=== PATIENT | female | born 1985 | race Caucasian/White ===

== ENCOUNTER 2019-01-18 15:30 | Outpatient (CLI) | payer MEDICAID, SELFPAY ==
[2019-01-18 16:07] VITALS: BMI 31.1
[2019-01-18 16:39] LABS: ROM Internal Control Test YES-OK TO RESULT pt. (Internal QC); ROM Patient Test Negative (Negative)
--- NOTE | 2019-01-20 07:13 | OB.TRI.PN ---
Progress Notes Date of Service: 01/18/19 Progress Note: with EDC02/12/19 presents to labor and delivery with complaint of uterine contractions and rupture of membranes. Noticed increased vaginal mucous discharge and unsure if her water broke. Contractions are uncomfortable but not regular, 15 minutes apart. No vaginal bleeding, good movement. O: !30, moderate variability, accels, no decels. Irregular uterine contractions. Reactive NST Cervix: closed, thick. Unchanged on recheck A: Vaginal discharge Irregular uterine contractions History of section P: 1) Not in active labor. Decreased discomfort with uterine irritability. 2) ROM plus negative. 3) Discharge home Laboratory Studies: Laboratory Tests 01/18/19 Range/Units 15:50 Vag Amniotic Fld Detect Negative (Negative)
== END 2019-01-18 18:30 | disposition home or self-care (01) ==
LOC: WPOUT 15:38 → WP 15:39
PROVIDERS: Visit Provider Advanced Practice Midwife
DX: O26.899 Other specified pregnancy related conditions, unspecified trimester (principal); N89.8 Other specified noninflammatory disorders of vagina; O34.219 Maternal care for unspecified type scar from previous cesarean delivery; Z3A.00 Weeks of gestation of pregnancy not specified
CPT/HCPCS: 59025; 59050; 84112; 99218; G0378

== ENCOUNTER 2019-02-05 05:00 | Inpatient (IN) | payer MEDICAID, SELFPAY ==
--- NOTE | 2019-02-03 10:07 | PCM.HP.BLA ---
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 Patient denies any vaginal bleeding, leaking of fluid. Patient is scheduled on February 05, 2019 at which time she'll be 39 weeks gestation ? PAST?MEDICAL?HISTORY No past medical history on file. PAST?SURGICAL?HISTORY PAST SURGICAL HISTORY Procedure Laterality Date ? SECTION HX ? 01/19/2010 ? FAMILY?HISTORY FAMILY HISTORY Problem Relation Age of Onset ? Stroke Mother ? ? Heart disease Mother ? ? No Known Problems Father ? ? Asthma Sister ? ? Asthma Brother ? ? No Known Problems Maternal Grandmother ? ? No Known Problems Maternal Grandfather ? ? No Known Problems Paternal Grandmother ? ? No Known Problems Paternal Grandfather ? ? No Known Problems Sister ? ? SOCIAL?HISTORY Social History Socioeconomic History Marital status: Spouse name: Not on file Number of children: Not on file Years of education: Not on file Highest education level: Not on file Occupational History Not on file Social Needs Financial resource strain: Not on file Food insecurity: Worry: Not on file Inability: Not on file Transportation needs: Medical: Not on file Non-medical: Not on file Tobacco Use Smoking status: Never Smoker Smokeless tobacco: Never Used Substance and Sexual Activity Alcohol use: No Drug use: No Sexual activity: Yes Partners: Male Lifestyle Physical activity: Days per week: Not on file Minutes per session: Not on file Stress: Not on file Relationships Social connections: Talks on phone: Not on file Gets together: Not on file Attends bahai service: Not on file Active member of club or organization: Not on file Attends meetings of clubs or organizations: Not on file Relationship status: Not on file Intimate partner violence: Fear of current or ex partner: Not on file Emotionally abused: Not on file Physically abused: Not on file Forced sexual activity: Not on file Other Topics Concerns: Not on file Social History Narrative Not on file ? CURRENT?MEDICATIONS ? Current Outpatient Medications: [id number]/FA/om3/dha/epa ( GUMMY ORAL) Take by mouth. promethazine (PHENERGAN) 12.5 mg tablet Take 1 tablet by mouth every 6 hours as needed. ondansetron orally disintegrating (ZOFRAN ODT) 4 mg disintegrating tablet Take 1 tablet by mouth every 8 hours as needed. ? No current facility-administered medications for this visit. Allergies As of Date: 02/02/2019 Allergen Noted Reaction PENICILLIN 07/01/2018 Unknown ? Fully Assessed 02/02/2019 ? ? REVIEW OF SYSTEMS Abdomen: No abdominal pain, nausea, vomiting, diarrhea, or constipation. Bladder: no dysuria.. Expanded ROS: GENERAL: Negative for fever Allergies and current medication updated:Yes ? EXAM: BP 108/64 Wt 207 lb (93.9kg) LMP 05/08/2018 ? GENERAL: pleasant, female in no apparent distress HEENT: Normocephalic and atraumatic NECK: full range of motion DERMATOLOGY: Normal, without lesions, non-icteric and non-hirsute CARDIAC: regular rate and rhythm CHEST: Normal inspiratory effort, clear to auscultation ABDOMEN: gravid, non tender PELVIC: deferred BIMANUAL: deferred NEURO: alert and oriented x3,exam grossly non-focal EXTREMITIES: normal ? ASSESSMENT AND PLAN: Encounter Diagnosis ? ? ICD-10-CM ? 1. Visit for screening Z36.9 URINE OB DIP B/O 2. History of delivery Z98.891 URINE OB DIP B/O 3. 38 weeks gestation of Z3A.38 URINE OB DIP B/O 4. Need for vaccination Z23 INFLUENZA VACCINE QUADRIVALENT AGE 3 YRS PLUS + IM ? Pt has been counseled on risks/benefits and alternatives of surgery including but not limited to anesthesia, bleeding, infection, injury to pelvic structures including bowel, bladder, ureters and vessels. Pt wishes to proceed with surgery at this time. ? ? Krystal Tran MD ? Routine Office Visit on 02/02/2019
[2019-02-05] VITALS (23 sets, daily range): BP systolic 96–124; BP diastolic 53–81; PULSE 55–93; RESP 16–22; TEMP 36.2–36.9; O2SAT 93–100; BMI 32.2
[2019-02-05] MEDS: Lactated Ringers 1,000 ML 999 ML IV (05:15)
[2019-02-05 05:34] LABS: Absolute Lymphocyte Count 1.43 X10^3/uL (0.83-4.51); Absolute Neutrophil Count 5.9 X10^3/uL (2.0-7.7); Basophil# 0.01 X10^3/uL; Basophil% 0.1 % (0-1); Eosinophil# 0.09 X10^3/uL; Eosinophils% 1.1 % (0-5); Hematocrit 38.5 % (37-47); Hemoglobin 12.8 g/dL (12.0-15.0); Lymphocyte # 1.43 X10^3/ul (4.0); Lymphocyte % 18.2 % (19-41); Mean Corp Hgb Conc 33.2 g/dL (32-36); Mean Corpuscular Hgb 29.6 pg (27.0-32.0); Mean Corpuscular Volume 89.1 fL (81-99); Monocyte# 0.42 X10^3/uL; Monocyte% 5.4 % (0-10); NRBC Flagged by Analyzer 0 % (0-5); Neutrophil # 5.87 X10^3/uL (2.7-7.7); Neutrophil % 74.8 % (47-70); Platelet Count 202 K/mm3 (150-450); RBC Distribution Width CV 15.6 % (11.6-14.6); RBC Distribution Width SD 50.7 fl (35.1-43.9); Red Blood Count 4.32 M/mm3 (4.2-5.4); White Blood Count 7.9 K/mm3 (4.4-11.0)
[2019-02-05] MEDS: Lactated Ringers 1,000 ML 150 ML IV (06:17)
[2019-02-05] MEDS: Sodium Citrate/Citric Acid 30 ML UDC PO (07:08)
[2019-02-05] MEDS: Cefazolin 2 GM in 0.9% Normal Saline 100 ML IV (07:30)
[2019-02-05] MEDS: Ondansetron 4 MG/2 ML Vial IV (07:47)
--- NOTE | 2019-02-05 08:04 | PCM.OPRPT ---
Delivery Classification: Scheduled Final RADHA: 02/12/19 Final RADHA Source: LMP Gestational age: 39 Weeks and 0 Days mathematical engineer: Michael Hoskins Type of Anesthesia:: Spinal Implants Used: none Date of Procedure: 02/05/19 Pre-Operative Diagnosis: 39 weeks term gestation, elective repeat section Post-Operative Diagnosis: live female infant Indications: repeat section Indications for : Repeat Elective Description of Procedure: Operative note: After informed consent was obtained the patient was taken to the operating room she was given spinal anesthesia. He was placed in the supine position. She was then prepped and draped in normal sterile fashion. Once spinal anesthesia was found to be adequate skin incision was made with a scalpel in a Pfannenstiel fashion. It was carried down to the underlying layer of the fascia. Fascia was then incised midline with scapel and extended laterally using curved ordoñez. 2 straight Trae's were placed in the superior aspect of the fascial edge and the rectus muscles were dissected off sharply. Attention was then turned to the inferior aspect where again the fascial edge was grasped with 2 straight Trae clamps tented up and the rectus muscle dissected off sharply. At this time the rectus muscles were grasped in the midline using 2 Allis clamps and scalpel was used to separate the rectus muscles. Using blunt force the peritoneum was then entered. Metzenbaums were used to take down the rectus muscles inferiorly as well as the peritoneum. At this time the vesicouterine peritoneum was identified. Metzenbaum scissors were used to create a bladder flap and then taken down digitally. Uterine incision was made in a low transverse fashion with the scalpel and then entered bluntly. Gentle opposing traction was placed to extend the uterine incision. The membranes were ruptured amniotic fluid clear. Infant's head was then brought to the uterine incision was delivered atraumatically followed by the rest infant's body. At this time delayed cord clamping was performed mouth nose were suctioned. Infant was then handed to the waiting nursery team. The placenta was then removed with gentle traction. The uterus was removed from the intra-abdominal cavity is wrapped in a moist lap. He was cleared of all clots and debris using a moist lap. Ring clamps were placed on the uterine angles. #1 Vicryl suture was used in a running locked fashion for the first layer. Followed by second imbricating layer with #1 Vicryl. At this time then the uterus was placed back into abdominal cavity uterine incision was evaluated and noted to be of good hemostasis. Tubes and ovaries were evaluated they were normal. . Great hemostasis was appreciated at this time the uterine incision was again evaluated good hemostasis was appreciated. The peritoneum was grasped with Kellys. Peritoneum was reapproximated using #2 Vicryl suture in a running fashion. The fascia was then reapproximated using #1 Vicryl in a running fashion. Subcutaneous layer was evaluated and Bovie was used for any small oozing that was noted per #2-0 plain gut suture was then used to reapproximate the subcutaneous layer 4-0 monocryl used to reapproximate the skin in a subcutaneous fashion. Dry sterile dressing was applied. Instrument lap needle count were correct ?2. Anticipated normal postoperative course for this patient. Amniotic Membrane Rupture Type: Artificial Amniotic Fluid Description: Clear Placenta Disposition: [facility] Drain: Uriarte to straight drain Fluids Replaced: 1000 Cord Entanglement: None Cord Vessel Description: 3 Vessels Esitmated Blood Loss (ml): 600 Infant Gender: Female (1 minute): 9 (5 minute): 9 Delayed cord clamping: Yes Antibiotic Given: Ancef 2 grams IV x1 Pt instructed on risks of surgery: Bleeding, Anesthesia Risks, Infection, Need for Future C-Sections, Injury to surrounding structure(s) including bowel and bladder Complications: None - Admit VTE Documentation VTE Present on Admission: Yes VTE Mechan Device Prophylaxis: SCD's VTE Pharm Prophylaxis ordered?: Yes
[2019-02-05] MEDS: Oxytocin 30 units/NS 500 ml 30 UNITS/500 ML IV.SOLN 167 UNITS IV (08:36)
[2019-02-05] MEDS: Lactated Ringers 1,000 ML 100 ML IV ×2 (11:49→21:17)
[2019-02-05] MEDS: Prenatal Vits Tablet 1 TABLET PO (11:55)
[2019-02-05] MEDS: Ferrous Sulfate 325 MG Tablet PO ×2 (11:55→17:58)
[2019-02-05] MEDS: Ketorolac 30 MG/ML Syringe IV ×2 (14:02→20:16)
[2019-02-05] MEDS: 0.9% Saline Lock 10 ML Syringe IV ×2 (14:03→20:15)
[2019-02-06] VITALS (7 sets, daily range): BP systolic 102–131; BP diastolic 45–74; PULSE 58–75; RESP 14–18; TEMP 36.6–37.2; O2SAT 96–100
[2019-02-06] MEDS: Ketorolac 30 MG/ML Syringe IV ×4 (02:18→20:26)
[2019-02-06] MEDS: Enoxaparin 40 MG/0.4 ML Syringe SC (05:59)
[2019-02-06 06:11] LABS: Hematocrit 34.3 % (37-47); Hemoglobin 11.3 g/dL (12.0-15.0); Mean Corp Hgb Conc 32.9 g/dL (32-36); Mean Corpuscular Hgb 30.1 pg (27.0-32.0); Mean Corpuscular Volume 91.2 fL (81-99); Mean Platelet Vol. 11.3 fl (6.2-12.0); Platelet Count 171 K/mm3 (150-450); RBC Distribution Width CV 15.5 % (11.6-14.6); RBC Distribution Width SD 51.8 fl (35.1-43.9); Red Blood Count 3.76 M/mm3 (4.2-5.4); White Blood Count 10.1 K/mm3 (4.4-11.0)
[2019-02-06] MEDS: 0.9% Saline Lock 10 ML Syringe IV ×2 (09:00→20:26)
[2019-02-06] MEDS: Senna/Docusate Sodium 1 Tablet PO (09:26)
[2019-02-06] MEDS: Prenatal Vits Tablet 1 TABLET PO (09:27)
[2019-02-06] MEDS: Ferrous Sulfate 325 MG Tablet PO ×2 (09:27→16:26)
--- NOTE | 2019-02-06 09:57 | PCM.PN.OB ---
Subjective: Pain well controlled, average lochia. No nausea or vomiting. Tolerating regular diet. - Physical Exam General: Alert, Cooperative, No apparent distress Abdomen: Soft, Distended - Mildly, softly, Tender - Appropriately Skin: Incision - The bandage is clean dry and intact Vital Signs Temp Pulse Resp BP Pulse Ox 98.2 F 65 16 115/71 100 02/06/19 09:06 02/06/19 09:06 02/06/19 09:06 02/06/19 09:06 02/06/19 09:06 Oxygen Delivery Method Room Air Weight: 93.2 kg Body Mass Index (BMI) 32.2 Intake and Output for Last 24 Hours 02/04/19 02/05/19 02/06/19 23:59 23:59 23:59 Intake Total 4651.67 / 4651.67 1073.33 / 1073.33 Output Total 900 / 900 550 / 550 Balance 3751.67 / 3751.67 523.33 / 523.33 Laboratory Tests Past 24 Hrs 02/06/19 05:58 WBC 10.1 RBC 3.76 L Hgb 11.3 L Hct 34.3 L MCV 91.2 MCH 30.1 MCHC 32.9 RDW Std Deviation 51.8 H RDW Coeff of Mariano 15.5 H Plt Count 171 MPV 11.3 Medical Necessity - Tobacco Use Smoking Status: Never smoker Assessment/Plan Postoperative day #1 status post repeat . Patient doing well. Patient is working on breast-feeding. Likely home tomorrow.
[2019-02-06] MEDS: Acetaminophen 500 MG Tablet 1000 MG PO (16:20)
[2019-02-07] MEDS: Ketorolac 30 MG/ML Syringe IV ×2 (02:27→08:51)
[2019-02-07] MEDS: 0.9% Saline Lock 10 ML Syringe IV ×2 (02:28→08:51)
[2019-02-07 02:30] VITALS: BP 124/75; PULSE 75; RESP 16; TEMP 36.9
[2019-02-07] MEDS: Enoxaparin 40 MG/0.4 ML Syringe SC (06:19)
[2019-02-07 08:45] VITALS: BP 115/75; PULSE 69; RESP 18; TEMP 36.6; O2SAT 98
[2019-02-07] MEDS: Prenatal Vits Tablet 1 TABLET PO (08:51)
[2019-02-07] MEDS: Ferrous Sulfate 325 MG Tablet PO (08:51)
--- NOTE | 2019-02-07 09:50 | PCM.PN.OB ---
Subjective: pain well controlled, average lochia, no N/V. + BM. - Physical Exam General: Alert, Cooperative, No apparent distress Abdomen: Soft, Non-Distended, Distended - mildly, softly, - - fundus firm, below umbilicus Skin: Incision - bandage is clean dry and intact Vital Signs Temp Pulse Resp BP Pulse Ox 98 F 69 18 115/75 98 02/07/19 08:45 02/07/19 08:45 02/07/19 08:45 02/07/19 08:45 02/07/19 08:45 Oxygen Delivery Method Room Air Weight: 93.2 kg Body Mass Index (BMI) 32.2 Intake and Output for Last 24 Hours 02/05/19 02/06/19 02/07/19 23:59 23:59 23:59 Intake Total 4651.67 / 4651.67 1073.33 / 1073.33 Output Total 900 / 900 2150 / 2150 Balance 3751.67 / 3751.67 -1076.67 / -1076.67 Medical Necessity - Tobacco Use Smoking Status: Never smoker Assessment/Plan POD#2 routine care ready for dc infant and doing well
--- NOTE | 2019-02-07 09:56 | DCINST_ITS ---
Discharge Diet: No Restrictions Discharge Activity: Return to Normal Activity, May Not Drive - for 2 weeks, May not drive while taking narcotic pain medications., May Shower, May Take a Tub Bath - in 7 days. May resume sexual activity in: 4-6 weeks Lifting Restrictions: 20 pounds Additional Activity Instructions:: Nothing in the vagina for 4-6 weeks. You may return to work/school in 6 weeks. Call your doctor if your incision/area has: Continuous Slow Oozing, Sudden Increased Bleeding, Increased Pain/ Swelling, Increased Redness, Foul Smelling Discharge Call your doctor if you observe: Fever of 101 or Higher, Using more than one pad per hour - for 2 hours Suture Line Care: Avoid Pulling/Pushing, Avoid Pinching/Bending Cleanse incision/area with: Keep Dressing Clean & Dry Additional Instructions: If you experience any of the following, contact your healthcare provider. * Bleeding that soaks a pad every hour for 2 hours * Fever 100.4 or higher * Unrelieved incision or abdominal pain * Swelling, redness, discharge or bleeding from your incision or episiotomy site * Your incision begins to separate * Problems urinating (including inability to urinate or burning while urinating). * Visual changes * Severe headache * Flu-like symptoms * Pain or redness in one of both of your breasts * Pain, warmth, tenderness or swelling in your legs, especially the calf area * Frequent nausea and vomiting * Symptoms of depression or anxiety If you experience any of the following, call 911 or go to the nearest Emergency Room. * Chest pain * Problems breathing * Seizure activity * Partial or complete paralysis of a body part, slurred speech, weakness or drooping of the face, or a sudden inability to walk or hold your balance Allergies/Adverse Reactions: Allergies Penicillins Allergy (Verified 02/05/19 05:09) Unknown Medications to take at Discharge Ferrous Sulfate [Iron] 325 mg PO BID 01/18/19 Vits [Prenatabs FA ] 1 tab PO DAILY 01/18/19 Docusate Sodium [Colace] 100 mg PO DAILY 02/05/19 Ibuprofen [Motrin] 800 mg PO TID PRN PRN #60 tab 02/07/19 Oxycodone [Oxyir] 5 mg PO Q6H PRN PRN 2 Days #5 tab 02/07/19 The following prescriptions were given: Ibuprofen [Motrin] 800 mg PO TID PRN PRN #60 tab PRN Reason: Pain [id number] Oxycodone [Oxyir] 5 mg PO Q6H PRN PRN 2 Days #5 tab PRN Reason: Severe Pain (-02/25) Transmission Status[id number] Follow-Up: Call to make a follow-up appointment in our office in 1-2 and 6 weeks or as needed. Please Follow Up With: Krystal Tran MD - Call to make an appointment for an incision check in 1-2 [phone] When: You will need a post check in 6 weeks. Primary Care Physician: Care Physician,No Primary [Primary Care Provider] -
--- NOTE | 2019-02-07 10:04 | PCM.DC.SUM ---
Discharge Date and Diagnosis Date of Admission: 02/05/19 Date of Discharge: 02/07/19 Hospital Course and Treatment Operations: - - Repeat low transverse section via Pfannenstiel skin incision performed on 02/05/2019 Summary of Care Provided: The patient is a 33 year old female presented for repeat section. It was performed without difficulty. By postoperative day #2 she was ambulating, urinating tolerating regular diet without difficulty. She was discharged home with routine instructions and prescriptions. [] - Physical Exam Vital Signs Temp Pulse Resp BP Pulse Ox 98 F 69 18 115/75 98 02/07/19 08:45 02/07/19 08:45 02/07/19 08:45 02/07/19 08:45 02/07/19 08:45 Oxygen Delivery Method Room Air Weight: 93.2 kg Body Mass Index (BMI) 32.2 Intake and Output for Last 24 Hours 02/05/19 02/06/19 02/07/19 23:59 23:59 23:59 Intake Total 4651.67 / 4651.67 1073.33 / 1073.33 Output Total 900 / 900 2150 / 2150 Balance 3751.67 / 3751.67 -1076.67 / -1076.67 Discharge Diet: No Restrictions Discharge Activity: Return to Normal Activity, May Not Drive - for 2 weeks, May not drive while taking narcotic pain medications., May Shower, May Take a Tub Bath - in 7 days. May resume sexual activity in: 4-6 weeks Additional Activity Instructions:: Nothing in the vagina for 4-6 weeks. You may return to work/school in 6 weeks. Call your doctor if your incision/area has: Continuous Slow Oozing, Sudden Increased Bleeding, Increased Pain/ Swelling, Increased Redness, Foul Smelling Discharge Call your doctor if you observe: Fever of 101 or Higher, Using more than one pad per hour - for 2 hours Suture Line Care: Avoid Pulling/Pushing, Avoid Pinching/Bending Cleanse incision/area with: Keep Dressing Clean & Dry Home Medications: Medications to take at Discharge Ferrous Sulfate [Iron] 325 mg PO BID 01/18/19 Vits [Prenatabs FA ] 1 tab PO DAILY 01/18/19 Docusate Sodium [Colace] 100 mg PO DAILY 02/05/19 Ibuprofen [Motrin] 800 mg PO TID PRN PRN #60 tab 02/07/19 Oxycodone [Oxyir] 5 mg PO Q6H PRN PRN 2 Days #5 tab 02/07/19 Following Prescrptions Were Given to Patient: Ibuprofen [Motrin] 800 mg PO TID PRN PRN #60 tab PRN Reason: Pain [id number] Oxycodone [Oxyir] 5 mg PO Q6H PRN PRN 2 Days #5 tab PRN Reason: Severe Pain (-02/25) Transmission Status[facility] Primary Care Physician: Care Physician,No Primary [Primary Care Provider] - Please Follow Up With: Krystal Tran MD - Call to make an appointment for an incision check in 1-2 [phone] When: You will need a post check in 6 weeks. Medical Necessity - Tobacco Use Smoking Status: Never smoker Meaningful Use Info Meaningful Use Diagnoses (Choose all that apply): None applicable
[2019-02-07] MEDS: Acetaminophen 500 MG Tablet 1000 MG PO (13:29)
[2019-02-07 14:15] VITALS: BP 110/70; PULSE 81; RESP 16; TEMP 36.4; O2SAT 98
[2019-02-07] MEDS: Ibuprofen 600 MG Tablet PO (14:54)
== END 2019-02-07 15:25 | disposition home or self-care (01) | DRG 540 ==
PROVIDERS: Admitting Provider Obstetrics & Gynecology; Referring Provider Obstetrics & Gynecology; Visit Provider Obstetrics & Gynecology
PROC: 10D00Z1 Extraction of Products of Conception, Low, Open Approach (ICD-10-PCS; CPT 59514; principal; 2019-02-05 07:15)
DX: O34.211 Maternal care for low transverse scar from previous cesarean delivery (principal); Z3A.39 39 weeks gestation of pregnancy; Z37.0 Single live birth
CPT/HCPCS: 85025; 85027; 86850; 86900; 86901; 99218; J7120; A4216; G0378; J2405